=== PATIENT | male | born 1975 ===

== ENCOUNTER 2018-03-16 10:21 | Emergency (ER) | payer OTHER ==
[~2018-03-16] VITALS: Ht 182.9 cm; Wt 68.0 kg
== END 2018-03-16 13:17 | disposition home or self-care (01) ==
LOC: ER 10:21
DX: S61.422A Laceration with foreign body of left hand, initial encounter (principal); W45.8XXA Other foreign body or object entering through skin, initial encounter; Y93.89 Activity, other specified; Y92.89 Other specified places as the place of occurrence of the external cause; Y99.8 Other external cause status

== ENCOUNTER 2018-08-15 13:59 | Emergency (ER) | payer OTHER ==
[~2018-08-15] VITALS: Ht 172.7 cm; Wt 127.0 kg
[2018-08-15] MEDS ORDERED: ASPIRIN325 MG (14:17)
[2018-08-15] MEDS ORDERED: NORVASC2.5 MG (14:17)
[2018-08-15] MEDS ORDERED: ASPIR 8181 MG (14:17)
== END 2018-08-15 19:35 | disposition home or self-care (01) ==
LOC: ER 13:59
DX: R07.89 Other chest pain (principal); F41.0 Panic disorder [episodic paroxysmal anxiety]